=== PATIENT | female | born 1965 | race Caucasian/White ===

== ENCOUNTER → 2024-01-13 06:33 | Outpatient (REF) | payer OTHER, SELFPAY | LOC: MRI 3T 06:33 | PROVIDERS: ATTENDING PHYSICIAN Orthopaedic Surgery; FAMILY PHYSICIAN Nurse Practitioner; REFERRING PHYSICIAN Physical Medicine & Rehabilitation | DX: S83.242A Other tear of medial meniscus, current injury, left knee, initial encounter (principal); M48.07 Spinal stenosis, lumbosacral region | CPT/HCPCS: 72148; 73721 ==

== ENCOUNTER → 2024-02-03 06:51 | Outpatient (REF) | payer OTHER, SELFPAY | LOC: RAD 06:51 | PROVIDERS: ATTENDING PHYSICIAN Nurse Practitioner | DX: R42 Dizziness and giddiness (principal); R55 Syncope and collapse | CPT/HCPCS: 70450 ==

== ENCOUNTER 2024-03-07 10:29 | Inpatient (IN) | payer OTHER, SELFPAY ==
--- NOTE | 2024-02-21 09:13 | CM ---
Patient is scheduled for lumbar spine surgery on 03/07/24. Spoke with patient prior to surgery via telephone. Introduced role of the Orthopedic Navigator. Patient reports that she lives with her significant other in a two story home. There is one
step to enter and a flight of steps to the second floor. She currently functions independently. She has a rolling walker and cane. She has never had VN services. PCP is Sharon Moffett.
Discussed orthopedic program, post surgical plans and tentative plan for patient to return home when directed by surgeon. Patient is in agreement with tentative plan and will have support from her significant other when she goes home.
Plan: Orthopedic Navigator will remain available to assist with the care of patient and will reassess discharge needs after surgery.
[2024-02-24 08:24] VITALS: BMI 35.4
[2024-02-24 09:03] LABS: Hematocrit 35.6 % (37.0-47.0); Hemoglobin 12.3 g/dL (12.0-16.0); Mean Corp Hgb Conc. 34.6 g/dL (33.0-37.0); Mean Corpuscular Hgb 31.5 pg (27.0-31.0); Mean Platelet Volume 9.9 fL (7.4-10.4); Platelet Count 183 10^3/uL (130-400); Red Blood Cell Count 3.91 10^6/uL (4.20-5.40); White Blood Cell Count 4.1 10^3/uL (4.8-10.8)
[2024-02-24 09:29] LABS: ALT (SGPT) 29 U/L (0-35); AST (SGOT) 33 U/L (14-36); Albumin 4.1 g/dl (3.5-5.0); Alkaline Phosphatase 73 U/L (38-126); Blood Urea Nitrogen 21 mg/dl (7-17); Calcium 9.7 mg/dl (8.4-10.2); Carbon Dioxide 27 mmol/L (22-30); Chloride 105 mmol/L (98-107); Estimated Creatinine Clearance 86 ml/min; Glucose 90 mg/dl (70-99); Sodium 142 mmol/L (135-145); Total Bilirubin 0.3 mg/dl (0.2-1.3); Total Protein 6.6 g/dl (6.3-8.2); eGFR > 60.00
[2024-03-02 10:23] VITALS: BMI 35.4
[2024-03-07] VITALS (14 sets, daily range): BP systolic 88–132; BP diastolic 49–93; PULSE 85; O2SAT 96
[2024-03-07] MEDS: LYRICA 150 MG PO (09:50)
[2024-03-07] MEDS: SKELAXIN 800 MG PO ×2 (09:50→17:13)
[2024-03-07] MEDS: CELEBREX 200 MG PO (09:50)
[2024-03-07] MEDS: TYLENOL 1000 MG PO ×3 (09:51→21:00)
[2024-03-07] MEDS: NORMOSOL-R 1000 IV ×2 (10:14→14:24)
[2024-03-07] MEDS: VANCOCIN 300 MG IV (10:19)
[2024-03-07] MEDS: VANCOCIN 300 ML IV (10:19)
--- NOTE | 2024-03-07 13:09 | W.DS.TRANS ---
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
-
Discharge Instructions:
Sleep Apnea Risk High
Discharge Diagnosis/Procedures L4-[address] Valdez 03/07/24
Diet As tolerated
Activity No strenuous activity
Driving Restrictions No driving
Instructions:
Stand-Alone Forms: [facility]
Changes to Home Medications: Yes
Discharge Medications:
DC Medications w/original date entered in [facility]
atorvastatin 10 mg tablet (Lipitor) 10 mg PO DAILY 08/05/20
escitalopram oxalate 20 mg tablet 20 mg PO DAILY 08/05/20
hydrochlorothiazide 12.5 mg capsule 25 mg PO DAILY 08/05/20
minocycline 100 mg capsule 100 mg PO PRN PRN acne exacerbation 08/05/20
multivitamin 1 ea PO DAILY 08/05/20
ropinirole 0.25 mg tablet 2 mg PO HS 08/05/20
famotidine 20 mg tablet (Pepcid AC Maximum Strength) 20 mg PO PRN PRN GERD 02/29/24
levothyroxine 25 mcg tablet 25 mcg PO DAILY 02/29/24
loratadine 10 mg tablet (Claritin) 10 mg PO PRN PRN allergy 02/29/24
meclizine 25 mg tablet 25 mg PO DAILY PRN vertigo 02/29/24
metoprolol succinate 25 mg tablet,extended release 24 hr 25 mg PO DAILY 02/29/24
omeprazole 40 mg capsule,delayed release 40 mg PO DAILY 02/29/24
Saccharomyces boulardii 250 mg capsule (Florastor) 250 mg PO BID #1 cap 03/07/24
acetaminophen 325 mg capsule (Tylenol) 650 mg (2 x 325 mg) PO QID #2 caps 03/07/24
clindamycin HCl 300 mg capsule 300 mg PO QID Infection #20 caps 03/07/24
clonazepam 1 mg tablet 1 mg PO BID #0 tabs 03/07/24
dexamethasone 4 mg tablet 4 mg PO BID inflammation #6 tabs 03/07/24
docusate sodium 100 mg capsule (Colace) 100 mg PO BID stool softner #1 cap 03/07/24
gabapentin 300 mg capsule 300 mg PO HS sleep/pain #10 caps 03/07/24
magnesium hydroxide 400 mg/5 mL oral suspension (Milk of Magnesia) 30 ml PO HS PRN Constipation #1 mL 03/07/24
oxycodone 5 mg tablet 5 mg PO Q6H PRN 1 tab moderate pain, 2 tabs severe pain #30 tabs 03/07/24
sennosides 8.6 mg tablet (Senokot) 17.2 mg (2 x 8.6 mg) PO BID laxative #2 tabs 03/07/24
Home Medication Changes
clindamycin HCl 300 mg capsule 300 mg PO QID Infection #20 caps 03/07/24�
clonazepam 1 mg tablet 1 mg PO BID #0 tabs 03/07/24�
dexamethasone 4 mg tablet 4 mg PO BID inflammation #6 tabs 03/07/24�
gabapentin 300 mg capsule 300 mg PO HS sleep/pain #10 caps 03/07/24�
oxycodone 5 mg tablet 5 mg PO Q6H PRN 1 tab moderate pain, 2 tabs severe pain #30 tabs 03/07/24�
Pending Results: No
[2024-03-07] MEDS: DEMEROL 12.5 MG IV ×2 (13:45→14:08)
[2024-03-07] MEDS: SUBLIMAZE 50 MCG IV ×2 (13:45→14:08)
--- NOTE | 2024-03-07 15:08 | PTCARENOTE ---
Pt received from PACU in bed, sleeping. Easily arousable, oriented, reports 10/10 low back pain but falls asleep when undisturbed. BP 98/63. Low back dressing observed c/d/i.
[2024-03-07] MEDS: LEXAPRO 20 MG PO (15:38)
[2024-03-07] MEDS: PROTONIX 40 MG PO (15:39)
[2024-03-07] MEDS: SYNTHROID PO (15:39)
[2024-03-07] MEDS: ULTRAM 50 MG PO ×3 (15:39→23:09)
[2024-03-07] MEDS: ROXICODONE 10 MG PO (17:13)
[2024-03-07] MEDS: LIPITOR 10 MG PO (17:14)
[2024-03-07] MEDS: COLACE 100 MG PO (20:45)
[2024-03-07] MEDS: SENOKOT 17.2 MG PO (20:45)
[2024-03-07] MEDS: ANCEF 5 IV (20:45)
[2024-03-07] MEDS: KLONOPIN 1 MG PO (20:58)
[2024-03-07] MEDS: LYRICA 75 MG PO (21:00)
[2024-03-07] MEDS: REQUIP 2 MG PO (21:00)
[2024-03-07] MEDS: PEPCID 20 MG PO (21:00)
[2024-03-08] MEDS: SKELAXIN 800 MG PO ×2 (01:37→09:48)
[2024-03-08] MEDS: ULTRAM 50 MG PO ×2 (03:13→07:33)
[2024-03-08] MEDS: ANCEF 5 IV (03:13)
[2024-03-08] MEDS: TYLENOL 1000 MG PO ×2 (03:13→09:45)
[2024-03-08 03:18] VITALS: BP 104/72
[2024-03-08] MEDS: SYNTHROID 25 MCG PO (05:30)
[2024-03-08 07:00] VITALS: BP 125/77
[2024-03-08] MEDS: PROTONIX 40 MG PO (07:32)
[2024-03-08] MEDS: SENOKOT 17.2 MG PO (07:32)
[2024-03-08] MEDS: COLACE 100 MG PO (07:32)
[2024-03-08] MEDS: LEXAPRO 20 MG PO (07:33)
[2024-03-08] MEDS: KLONOPIN 1 MG PO (07:33)
--- NOTE | 2024-03-08 07:48 | W.PN.SP ---
Today's Communication / Plan
-
s/p fusion
Doing well
PT
Subjective / Objective
Subjective Data
PT doin gwell
Leg better
Jed weakness
Objective Data
Vital Signs
Temp Pulse Resp BP Pulse Ox
98.4 F 73 12 125/77 100
03/08/24 07:00 03/08/24 07:00 03/08/24 07:00 03/08/24 07:00 03/08/24 07:00
Intake and Output
03/07/24 03/08/24 03/09/24
06:59 06:59 06:59
Intake Total 1230 / 1230
Balance 1230 / 1230
Intake:
Oral fluids 480 / 480
IV fluids (Total) 750 / 750
Normosol 150 / 150
Other:
Number of approximated MODERATE 1
amounts of urine
Number of approximated LARGE 1
amounts of urine
Physical Exam
-
No focal deficits
[2024-03-08 08:00] LABS: Hematocrit 34.4 % (37.0-47.0); Hemoglobin 11.8 g/dL (12.0-16.0)
--- NOTE | 2024-03-08 08:40 | CM ---
Reviewed chart and held rounds with PT, OT and RN. Patient had planned lumbar spine surgery with Dr. Valdez on 03/07. Met with patient at bedside. Confirmed information previously obtained for assessment and discussed discharge plans. Patient continues
to plan to return home at discharge. She will have support from her significant other when she goes home. Reviewed that she will work with PT/OT this morning and that discharge needs will depend on her functional status. However, no needs currently
identified.
Patient has a cane at home. She is unsure if she still has a rolling walker.
Patient will use [facility] pharmacy for discharge prescriptions.
[2024-03-08] MEDS: LYRICA 75 MG PO (09:48)
[2024-03-08 09:55] LABS: Blood Urea Nitrogen 18 mg/dl (7-17); Calcium 8.9 mg/dl (8.4-10.2); Carbon Dioxide 22 mmol/L (22-30); Chloride 101 mmol/L (98-107); Estimated Creatinine Clearance 86 ml/min; Glucose 112 mg/dl (70-99); Potassium 3.7 mmol/L (3.5-5.1); Sodium 135 mmol/L (135-145); eGFR > 60.00
[2024-03-08 10:02] VITALS: BP 112/69; PULSE 72; O2SAT 98
[2024-03-08 11:00] VITALS: BP 94/65
--- NOTE | 2024-03-08 12:04 | W.PN.ORTHO ---
Today's Communication / Plan
-
d/c
Assessment
.
Distal Motor Intact: Yes
Dressing:
Clean, dry and intact.
Plan
.
Surgery / Date: L4-[address] Valdez 03/07/24
Activity:
Out of bed.
PT/OT
Discharge Plan: Home
Subjective
.
.:
Patient resting comfortably.
Vital Signs and Labs
.
Vital Signs and Labs:
Lab Results
03/08/24 06:46
03/08/24 06:46
Temp Pulse Resp BP Pulse Ox
98.4 F 71 16 94/65 97
03/08/24 11:00 03/08/24 11:00 03/08/24 11:00 03/08/24 11:00 03/08/24 11:00
Physical Exam
-
HEENT: No pallor, cyanosis, or jaundice. Throat clear.
NECK: Supple. No JVD.
RESPIRATORY: Lungs clear to auscultation.
CVS: S1, S2 normal. RRR.� No murmur, rub or gallop.
ABDOMEN: Soft, non-tender. No distension. BS+/normal.
EXTREMITIES: strength equal, no calf pain with palpation
SOFTWARE QUALITY ENGINEER: AOx3. No focal deficits. vp medical grossly intact
[2024-03-08 12:10] VITALS: BP 115/72; BP 86/60; BP 87/60; PULSE 60; PULSE 76; O2SAT 98
[2024-03-08] MEDS: ANTIVERT 25 MG PO (12:21)
[2024-03-08] MEDS: ULTRAM PO (13:08)
[2024-03-08 13:46] VITALS: BP 91/75
[2024-03-08 19:21] LABS: Hepatitis C Antibody Negative (Negative)
== END 2024-03-08 14:21 | disposition home or self-care (01) | DRG 460 ==
LOC: 2 SOUTH 10:29
PROVIDERS: Physician Assistant Medical; ADMITTING PHYSICIAN Orthopaedic Surgery Orthopaedic Surgery of the Spine; FAMILY PHYSICIAN Nurse Practitioner
PROC: 0SG00K1 Fusion of Lumbar Vertebral Joint with Nonautologous Tissue Substitute, Posterior Approach, Posterior Column, Open Approach (ICD-10-PCS; 2024-03-07)
DX: M43.16 Spondylolisthesis, lumbar region (principal); E03.9 Hypothyroidism, unspecified; G25.81 Restless legs syndrome; I10 Essential (primary) hypertension; F32.A Depression, unspecified; F41.9 Anxiety disorder, unspecified; E78.2 Mixed hyperlipidemia; M54.16 Radiculopathy, lumbar region; E78.00 Pure hypercholesterolemia, unspecified; Z79.890 Hormone replacement therapy; Z79.899 Other long term (current) drug therapy; Z85.3 Personal history of malignant neoplasm of breast; Z85.828 Personal history of other malignant neoplasm of skin; Z88.0 Allergy status to penicillin; Z82.49 Family history of ischemic heart disease and other diseases of the circulatory system
CPT/HCPCS: 36415; 72100; 76000; 80048; 80053; 85014; 85018; 85027; 86803; 87070; 97116; 97162; 97166; 97530; 97535

== ENCOUNTER → 2024-03-23 10:54 | Outpatient (REF) | payer OTHER, SELFPAY | LOC: RAD 10:54 | PROVIDERS: ATTENDING PHYSICIAN Nurse Practitioner | DX: R42 Dizziness and giddiness (principal); R55 Syncope and collapse | CPT/HCPCS: 76536 ==

== ENCOUNTER → 2024-08-14 06:59 | Outpatient (REF) | payer OTHER, SELFPAY | LOC: WDC 06:59 | PROVIDERS: ATTENDING PHYSICIAN Obstetrics & Gynecology; FAMILY PHYSICIAN Nurse Practitioner Family | DX: Z12.31 Encounter for screening mammogram for malignant neoplasm of breast (principal) | CPT/HCPCS: 77063; 77067 ==

== ENCOUNTER → 2024-09-15 06:34 | Outpatient (REF) | payer OTHER, SELFPAY | LOC: MRI 3T 06:34 | PROVIDERS: ATTENDING PHYSICIAN Physical Medicine & Rehabilitation; FAMILY PHYSICIAN Nurse Practitioner Family | DX: M23.91 Unspecified internal derangement of right knee (principal); M23.92 Unspecified internal derangement of left knee | CPT/HCPCS: 73721 ==

== ENCOUNTER → 2024-11-16 07:30 | Outpatient (REF) | payer OTHER, SELFPAY | LOC: PAVMRI 07:30 | PROVIDERS: ATTENDING PHYSICIAN Nurse Practitioner Family | DX: R42 Dizziness and giddiness (principal); G25.81 Restless legs syndrome; R41.3 Other amnesia | CPT/HCPCS: 70553; A9575 ==

== ENCOUNTER 2025-02-01 06:23 | Day surgery (SDC) | payer OTHER, SELFPAY | END 2025-02-01 11:01 | disposition home or self-care (01) | LOC: GI 06:23 | PROVIDERS: ATTENDING PHYSICIAN Internal Medicine Gastroenterology | DX: R12 Heartburn (principal); K44.9 Diaphragmatic hernia without obstruction or gangrene; K31.7 Polyp of stomach and duodenum; K21.00 Gastro-esophageal reflux disease with esophagitis, without bleeding | CPT/HCPCS: 43239; 88305 ==

== ENCOUNTER → 2025-06-21 19:38 | Outpatient (REF) | payer OTHER, SELFPAY | LOC: MRI 3T 19:38 | PROVIDERS: ATTENDING PHYSICIAN Nurse Practitioner Family | DX: R42 Dizziness and giddiness (principal); R51.9 Headache, unspecified; R26.89 Other abnormalities of gait and mobility | CPT/HCPCS: 70553; A9575 ==